=== PATIENT | female | born 1935 | race Caucasian/White ===

== ENCOUNTER 2016-11-23 16:54 | Emergency (ER) | payer MEDICARE ==
[2016-11-23 19:26] LABS: HEMOGLOBIN 15.4 gm/dl (12.3-15.3); RED BLOOD COUNT 4.95 M/UL (4.00-5.10); WHITE BLOOD COUNT 11.5 K/UL (4.5-11.0)
== END 2016-11-23 21:20 | disposition home or self-care (01) ==
LOC: ER1 16:54
PROVIDERS: Emergency Medicine; Physician Assistant
DX: N28.9 Disorder of kidney and ureter, unspecified (principal); I48.91 Unspecified atrial fibrillation; Z86.79 Personal history of other diseases of the circulatory system; Z90.49 Acquired absence of other specified parts of digestive tract; Z79.01 Long term (current) use of anticoagulants
CPT/HCPCS: 36415; 80053; 80162; 85025; 99283

== ENCOUNTER → 2016-12-02 | Outpatient (CLI) | payer MEDICARE | LOC: US 09:24 | PROVIDERS: Family Medicine | DX: R74.8 Abnormal levels of other serum enzymes (principal) | CPT/HCPCS: 36415; 76705; 80053 ==

== ENCOUNTER → 2021-03-25 | Outpatient (CLI) | payer MEDICARE | LOC: MAMO 12:54 | DX: Z12.31 Encounter for screening mammogram for malignant neoplasm of breast (principal); C50.412 Malignant neoplasm of upper-outer quadrant of left female breast | CPT/HCPCS: 77063; 77067 ==